=== PATIENT | male | born 1945 | race Two or more races ===

== ENCOUNTER 2023-08-24 14:27 | Emergency (ER) | payer OTHER ==
[~2023-08-24] VITALS: Ht 172.7 cm; Wt 75.0 kg
[2023-08-24] MEDS ORDERED: LIDOCAINE 1% HCL (LOCAL ANESTH.) INJ 20ML MDV ONE (15:11)
[2023-08-24] MEDS: LIDOCAINE 1% HCL (LOCAL ANESTH.) INJ 20ML MDV IJ ONE (15:17)
[2023-08-24] MEDS: NEOMYCIN-BACITRACIN-POLYM UNITDOSE PKG TOP OINT TOP ONE (16:13)
[2023-08-24] MEDS ORDERED: BACIOIN15 TOP (17:42)
[2023-08-24] MEDS ORDERED: CEPH500C PO (17:42)
[2023-08-24] MEDS ORDERED: ACE3T PO (17:58)
[2023-08-24 18:16] VITALS: BP 168/70; PULSE 75; RESP 18; O2SAT 98
== END 2023-08-24 18:17 | disposition home or self-care (01) ==
LOC: EDBD 14:27 → ER 14:27
DX: S01.81XA Laceration without foreign body of other part of head, initial encounter (principal); Z88.8 Allergy status to other drugs, medicaments and biological substances; Z79.899 Other long term (current) drug therapy; W18.39XA Other fall on same level, initial encounter; Y93.02 Activity, running; Y92.488 Other paved roadways as the place of occurrence of the external cause; Y99.8 Other external cause status
CPT/HCPCS: 12014; 70450; 99284; J2001

== ENCOUNTER 2023-08-27 21:48 | Emergency (ER) | payer OTHER ==
[~2023-08-27] VITALS: Ht 165.1 cm; Wt 73.2 kg
[~2023-08-27 21:48] MED LIST: ACE3T PO; BACIOIN15 TOP; CEPH500C PO
[2023-08-27 22:00] VITALS: BP 170/54; PULSE 69; RESP 18; O2SAT 98
[2023-08-28] MEDS: BACITRACIN TOP OINT 1 UD PKG TOP ONE (02:45)
== END 2023-08-28 02:48 | disposition home or self-care (01) ==
LOC: ER 21:48
DX: L03.211 Cellulitis of face (principal); Z48.00 Encounter for change or removal of nonsurgical wound dressing; Z88.8 Allergy status to other drugs, medicaments and biological substances; Z79.899 Other long term (current) drug therapy

== ENCOUNTER → 2023-09-02 | Outpatient (CLI) | payer OTHER ==
[2023-09-02 08:26] LABS: Basophils # (auto) 0 10 ^3/uL (0-0.2); Basophils % (auto) 0.7 % (0.0-2.0); Eosinophils # (auto) 0.1 10 ^3/uL (0-0.8); Eosinophils % (auto) 1.7 % (0.0-7.0); Hematocrit 37.2 % (41.0-53.0); Lymphocytes # (auto) 1.3 10 ^3/uL (0.4-5.4); Lymphocytes % (auto) 23.5 % (10.0-50.0); Mean Corpuscular Hemoglobin 27.4 pg (28.0-32.0); Mean Corpuscular Hgb Conc. 32.4 g/dL (32.0-36.0); Mean Corpuscular Volume 84.8 fL (80.0-100.0); Monocytes # (auto) 0.5 10 ^3/uL (0-1.3); Monocytes % (auto) 8.4 % (0.0-12.0); Neutrophils # (auto) 3.8 10 ^3/uL (1.6-8.6); Neutrophils % (auto) 65.7 % (37.0-80.0); Red Blood Cells 4.39 10^6/uL (4.5-5.90); Red Cell Distribution Width 14.5 % (11.8-14.3); White Blood Cell 5.7 10^3/uL (4.4-10.8)
[2023-09-02 09:09] LABS: Alanine Aminotransferase 18 U/L (7-40); Albumin 4.5 g/dL (3.2-4.8); Alkaline Phosphatase 92 U/L (46-116); Anion Gap 6 (5-15); Aspartate Aminotransferase 29 U/L (13-40); BUN/Creatinine Ratio 10.5 (10.0-20.0); Bilirubin, Total 0.8 mg/dL (0.2-1.0); Blood Urea Nitrogen 13 mg/dL (9-23); Calcium 9.6 mg/dL (8.5-10.1); Carbon Dioxide 27 mmol/L (20-30); Chloride 106 mmol/L (98-107); Cholesterol 129 mg/dL (< 200); Glucose 107 mg/dL (74-106); HDL Cholesterol 32 mg/dL (40-59); LDL Cholesterol 74 mg/dL (< 100); Potassium 4.3 mmol/L (3.5-5.1); Sodium 139 mmol/L (136-145); Total Protein 7.6 g/dL (5.7-8.2); Triglycerides 158 mg/dL (< 150)
[2023-09-02 13:46] LABS: Urine Bacteria FEW /hpf (None Seen); Urine Blood Negative /uL (Negative); Urine Clarity Clear (Clear); Urine Color Yellow (Yellow); Urine Mucus FEW (None Seen); Urine Protein, UAD Negative (Negative); Urine Specific Gravity 1.013 (1.001-1.035); Urine Urobilinogen Normal (Negative); Urine WBC <1 /hpf (0 - 3); Urine pH 6.5 (5.0-8.0)
== END | disposition home or self-care (01) ==
LOC: LAB 08:14
PROVIDERS: ATTEND Nurse Practitioner
DX: I10 Essential (primary) hypertension (principal); E78.5 Hyperlipidemia, unspecified
CPT/HCPCS: 36415; 80053; 80061; 81001; 83036; 84443; 85025

== ENCOUNTER 2024-12-11 16:43 | Emergency (ER) | payer OTHER ==
[~2024-12-11] VITALS: Ht 198.1 cm; Wt 59.9 kg
--- NOTE | 2024-12-11 17:23 | ECG ---
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
[2024-12-11 17:24] VITALS: PULSE 71; RESP 16; O2SAT 96
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
--- NOTE | 2024-12-11 18:10 | DVH ---
CLINICAL INDICATION: trauma TECHNIQUE: 3 radiographic views of the lumbar spine were obtained. Comparison: None FINDINGS/IMPRESSION: 5 [id number] lumbar-type vertebrae. Mild dextroconvex curvature of the lumbar spine. Straighteni ng of the lumbar lordosis. Minimal loss of vertebral body height of L1. Otherwise, the vertebral bod y heights are maintained and no evidence of acute traumatic fractures. Grade 1 anterolisthesis of L4 on L5. Multilevel [id number] degenerative changes of the lumbar spine. Small to moderate amount of fecal material within the colon. Phleboliths are noted within the pelvis .
[2024-12-11 18:14] LABS: Basophils # (auto) 0 10 ^3/uL (0-0.2); Basophils % (auto) 0.6 % (0.0-2.0); Eosinophils # (auto) 0 10 ^3/uL (0-0.8); Eosinophils % (auto) 0.9 % (0.0-7.0); Hematocrit 37.3 % (41.0-53.0); Hemoglobin 12.6 g/dL (13.5-17.5); Lymphocytes # (auto) 0.8 10 ^3/uL (0.4-5.4); Lymphocytes % (auto) 16.6 % (10.0-50.0); Mean Corpuscular Hemoglobin 29.4 pg (28.0-32.0); Mean Corpuscular Hgb Conc. 33.6 g/dL (32.0-36.0); Mean Corpuscular Volume 87.3 fL (80.0-100.0); Monocytes # (auto) 0.4 10 ^3/uL (0-1.3); Monocytes % (auto) 8.4 % (0.0-12.0); Neutrophils # (auto) 3.5 10 ^3/uL (1.6-8.6); Neutrophils % (auto) 73.5 % (37.0-80.0); Nucleated Red Blood Cells % 0.1 %; Platelet Count (auto) 143 10^3/uL (140-450); Red Blood Cells 4.28 10^6/uL (4.5-5.90); Red Cell Distribution Width 14.7 % (11.8-14.3); White Blood Cell 4.8 10^3/uL (4.4-10.8)
[2024-12-11 18:23] LABS: Anion Gap 9 (5-15); Carbon Dioxide 24 mmol/L (20-31); Potassium 3.6 mmol/L (3.5-5.1); Sodium 145 mmol/L (136-145)
[2024-12-11 18:29] LABS: BUN/Creatinine Ratio 19.4 (10.0-20.0); Glucose 99 mg/dL (74-106)
[2024-12-11 18:32] LABS: Blood Urea Nitrogen 24 mg/dL (9-23); Chloride 112 mmol/L (98-107)
[2024-12-11 21:44] VITALS: BP 127/76; PULSE 72; RESP 17; TEMP 98.6; O2SAT 98
== END 2024-12-11 21:25 | disposition home or self-care (01) ==
LOC: EDBD 16:43 → EDUNIT# 16:43 → ER 16:43
DX: R55 Syncope and collapse (principal); M54.9 Dorsalgia, unspecified; Z88.0 Allergy status to penicillin; Z79.899 Other long term (current) drug therapy; V89.2XXA Person injured in unspecified motor-vehicle accident, traffic, initial encounter; Y93.89 Activity, other specified; Y92.89 Other specified places as the place of occurrence of the external cause; Y99.8 Other external cause status
CPT/HCPCS: 36415; 72100; 80048; 82947; 85025; 93005